=== PATIENT | female | born 1950 | race Caucasian/White ===

== ENCOUNTER → 2019-02-04 16:41 | Outpatient (CLI) | payer MEDICARE, MEDICAID, SELFPAY ==
[2019-02-04 17:19] LABS: Basophils % 0.5 % (0.1-2.0); Eosinophils # 0.6 K/mm3 (0.0-0.4); Eosinophils % 9.2 % (0.1-12.0); Hematocrit 43.7 % (37.0-47.0); Hemoglobin 14.5 g/dL (12.2-16.2); Lymphocytes # 2.1 K/mm3 (0.7-4.5); Lymphocytes % 32.3 % (10-50); Mean Corpuscular HGB Conc 33.3 g/dL (31.8-35.4); Mean Corpuscular Hemoglobin 32.2 pg (27.0-31.2); Mean Corpuscular Volume 96.5 fl (81-99); Monocytes # 0.3 K/mm3 (0.1-1.0); Neutrophils # 3.5 K/mm3 (1.8-7.8); Platelet Count 230 K/mm3 (142-424); Red Blood Count 4.52 M/mm3 (4.20-5.40); Red Cell Distribution Width 13.1 % (11.5-17.5); White Blood Count 6.6 K/mm3 (4.8-10.8)
[2019-02-04 17:39] LABS: Alanine Aminotransferase 15 U/L (12-78); Albumin Level 3.9 gm/dL (3.4-5.0); Albumin/Globulin Ratio 1.2 (1.1-1.8); Alkaline Phosphatase 64 U/L (46-116); Anion Gap 15.4 mEq/L (5-15); Aspartate Amino Transferase 11 U/L (15-37); Bilirubin,Total 0.3 mg/dL (0.2-1.0); Blood Urea Nitrogen 10 mg/dL (7-18); Carbon Dioxide 26 mmol/L (21.0-32.0); Chloride 105 mmol/L (98-107); Creatinine,Serum 0.67 mg/dL (0.55-1.02); Estimated Glomerular Filt Rate 88 ml/min (>60); Free T4 (Free Thyroxine) 1.04 ng/dl (0.76-1.46); GFR (African American) 106 ML/MIN (>60); Globulin 3.3 gm/dl (1.3-3.2); Glucose 72 mg/dL (74-106); Potassium 4.4 mmoL/L (3.5-5.1); Sodium 142 mmol/L (136-145); Thyroid Stimulating Hormone 1.16 uIU/ml (0.358-3.740); Total Protein,Serum 7.2 gm/dL (6.4-8.2)
[2019-02-06 13:18] LABS: Vitamin D 25 Hydroxy 25.3 ng/mL (30.0-100.0)
== END ==
PROVIDERS: Visit Provider Nurse Practitioner Family
DX: R53.83 Other fatigue (principal); E55.9 Vitamin D deficiency, unspecified
CPT/HCPCS: 80053; 82652; 84439; 84443; 85025

== ENCOUNTER 2019-11-28 13:15 | Emergency (ER) | payer OTHER, MEDICARE, SELFPAY ==
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
[2019-11-28 13:46] VITALS: PULSE 0; RESP 0
--- NOTE | 2019-11-28 14:08 | PC.NURSE ---
CONTACTED [facility], SPOKE WITH YAQUELIN TYLER AND STATED THEY WOULD CALL US BACK WITH MORE INFORMATION
--- NOTE | 2019-11-28 14:10 | PC.NURSE ---
PT ARRIVAL PER EMS @ 1238 CPR IN PROGRESS, PT INTUBATED BUILDING CONSTRUCTION IRONWORKER PER EMS. MD AT BESIDE IMMEDIATELY TO PERFORM FAST EXAM. MD NOTED PT HAS BLOOD IN HER ABDOMEN AND NO CARDIAC ACTIVITY. TOD CALLED @ [id number].
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
--- NOTE | 2019-11-28 15:16 | PC.NURSE ---
COMMUNITY DEVELOPMENT SPECIALIST AT BEDSIDE
--- NOTE | 2019-11-28 15:22 | PC.NURSE ---
[facility] CALLED FOR UPDATE AND STATED THEY ARE STILL SCREENING THE PT AND TO NOT RELEASE PT
--- NOTE | 2019-11-28 15:38 | PC.NURSE ---
PT RELEASED TO GLUE MOUNTER OPERATOR,
[2019-11-28 17:28] VITALS: BP 0/0; PULSE 0; RESP 0; TEMP -17.7; TEMP 0; O2SAT 0
== END 2019-11-28 17:31 | disposition expired ==
PROVIDERS: Emergency Provider Student in an Organized Health Care Education/Training Program
DX: S36.92XA Contusion of unspecified intra-abdominal organ, initial encounter (principal); I46.8 Cardiac arrest due to other underlying condition; V44.5XXA Car driver injured in collision with heavy transport vehicle or bus in traffic accident, initial encounter; Y92.413 State road as the place of occurrence of the external cause
CPT/HCPCS: 31500; 94002; 99282